=== PATIENT | male | born 1940 | race Caucasian/White ===

== ENCOUNTER → 2016-12-18 | Outpatient (CLI) | payer OTHER ==
[~2016-12-18] MED LIST: ASCO1CAP3 PO; ASPI81TA28 PO; CHOL1000 PO; FINA5TAB PO; HYT/2 PO; KRIL1CAP7 PO; METO50TA16 PO; MULT-506 PO; NIAC500T11 PO; OMEG10007 PO; PRLSR20 PO; TRAM-10 PO
[2016-12-18 12:15] LABS: HEMATOCRIT 42.9 % (42-52); MEAN CELL VOLUME 92.9 fL (80-100); MEAN CORPUSCULAR HEMOGLOBIN 31.2 pg (25-34); MEAN CORPUSCULAR HGB CONC 33.6 g/dl (32-36); MEAN PLATELET VOLUME 9.8 fL (7.4-10.4); PLATELET COUNT 147 K/uL (130-400); RED BLOOD COUNT 4.62 M/uL (4.7-6.1); WHITE BLOOD COUNT 6.55 K/uL (4.8-10.8)
[2016-12-18 12:30] LABS: ALT/SGPT 25 U/L (12-78); BLOOD UREA NITROGEN 15 mg/dl (7-18); CARBON DIOXIDE 28 mmol/L (21-32); CHLORIDE 106 mmol/L (98-107); CHOLESTEROL 85 mg/dl (0-200); CREATININE 0.96 mg/dl (0.60-1.40); GLUCOSE 103 mg/dl (70-99); POTASSIUM 4.2 mmol/L (3.5-5.1); SODIUM 142 mmol/L (136-145); TRIGLYCERIDES 85 mg/dl (0-150); VERY LOW DENSITY LIPOPROT CALC 17 mg/dl
[2016-12-18 12:33] LABS: ALB/GLOB RATIO 0.9 (0.9-2); ALKALINE PHOSPHATASE 81 U/L (45-117); AST/SGOT 17 U/L (15-37); HDL CHOLESTEROL 28 mg/dl; LDL CHOLESTEROL CALCULATED 40 mg/dl
== END | disposition home or self-care (01) ==
LOC: C.LAB1850 10:08
PROVIDERS: ATTEND Internal Medicine Cardiovascular Disease
DX: I25.10 Atherosclerotic heart disease of native coronary artery without angina pectoris (principal); I10 Essential (primary) hypertension; D69.6 Thrombocytopenia, unspecified; I07.1 Rheumatic tricuspid insufficiency; E78.5 Hyperlipidemia, unspecified

== ENCOUNTER → 2017-08-02 | Outpatient (CLI) | payer OTHER ==
--- NOTE | 2017-08-02 12:58 | DIAGNOSTIC IMAGING REPORT ---
KUB HISTORY: Follow-up study in a patient with history of kidney stones N20.0 Calculus of kidney COMPARISON: Abdominal radiograph 05/17/2015 and 03/15/2014. FINDINGS: The bowel gas pattern is non-obstructive. There is no organomegaly. Bilateral nephrolithiasis. Right renal shadow is partially secured by bowel gas. No definite ureteral calculi. No pneumoperitoneum or pneumatosis. No fracture. Levoscoliosis of the lumbar spine. Multilevel moderate to advanced degenerative changes of the spine. Degenerative changes of the bilateral hips also noted. IMPRESSION: Bilateral nephrolithiasis without definite ureteral calculi identified. Right renal shadow is partially obscured by bowel gas. Electronically signed by: Rafi Davalos M.D. 08/02/2017 12:57 PM Dictated Date/Time: 08/02/2017 12:55 PM
== END | disposition home or self-care (01) ==
LOC: C.RAD 12:23
PROVIDERS: ATTEND Urology
DX: N20.0 Calculus of kidney (principal)

== ENCOUNTER 2017-11-29 07:51 | Day surgery (SDC) | payer OTHER ==
[2017-11-15 13:13] VITALS: Ht 172.7 cm; Wt 84.1 kg
--- NOTE | 2017-11-15 13:45 | PAT Medication Instructions ---
Service Date Nov 15, 2017. Current Home Medication List Ascorbic Acid (Vitamin C), 500 MG PO NOON Aspirin (Aspirin Ec), 81 MG PO QPM Atorvastatin (Lipitor), 40 MG PO QPM Cholecalciferol (Vitamin D3), 1,000 UNIT(INT) PO QAM Finasteride (Proscar), 5 MG PO HS Gabapentin (Neurontin), 300 MG PO TID Krill Oil (Krill Oil [place]-3), 1 CAP PO QPM Lorazepam (Ativan), 0.5 MG PO BID Metoprolol Tartrate (Lopressor) (Lopressor), 50 MG PO BID Multivitamin (Multivitamin), 1 TAB PO NOON Omeprazole (Prilosec), 20 MG PO BID Sennosides-Docusate Sodium (Stool Softener), 1 TAB PO BID Tamsulosin Hcl (Flomax), 0.4 MG PO HS Tramadol (Ultram), 50 MG PO TID [Oxybutynin], 5 MG PO BID Medication Instructions For Your Scheduled Surgery - Check with surgeon and director of occupational health for instructions: Aspirin (Aspirin Ec), 81 MG PO QPM - Hold the following medications 2 weeks prior to surgery: Krill Oil (Krill Oil [place]-3), 1 CAP PO QPM - Hold the following medications the morning of surgery: Ascorbic Acid (Vitamin C), 500 MG PO NOON Cholecalciferol (Vitamin D3), 1,000 UNIT(INT) PO QAM Multivitamin (Multivitamin), 1 TAB PO NOON Sennosides-Docusate Sodium (Stool Softener), 1 TAB PO BID [Oxybutynin], 5 MG PO BID - Take the following medications the morning of surgery with a sip of water: Tramadol (Ultram), 50 MG PO TID (okay to take up to 4 hours prior to surgery if needed) Omeprazole (Prilosec), 20 MG PO BID Metoprolol Tartrate (Lopressor) (Lopressor), 50 MG PO BID Lorazepam (Ativan), 0.5 MG PO BID Gabapentin (Neurontin), 300 MG PO TID - Take the following medications as scheduled the night before surgery: [Oxybutynin], 5 MG PO BID Tramadol (Ultram), 50 MG PO TID Tamsulosin Hcl (Flomax), 0.4 MG PO HS Sennosides-Docusate Sodium (Stool Softener), 1 TAB PO BID Omeprazole (Prilosec), 20 MG PO BID Metoprolol Tartrate (Lopressor) (Lopressor), 50 MG PO BID Lorazepam (Ativan), 0.5 MG PO BID Gabapentin (Neurontin), 300 MG PO TID Finasteride (Proscar), 5 MG PO HS Atorvastatin (Lipitor), 40 MG PO QPM If you have any questions please call us at [phone] or [phone] or [phone]
--- NOTE | 2017-11-15 14:34 | DIAGNOSTIC IMAGING REPORT ---
CHEST 2 VIEWS ROUTINE HISTORY: 77 years-old Male PAT preoperative exam. No acute chest complaints. COMPARISON: Chest radiographs 05/28/2013 TECHNIQUE: PA and lateral views of the chest FINDINGS: Cardiac silhouette is upper limits of normal. Prominence of the hilar structures again seen bilaterally which appears unchanged suggesting pulmonary vascular congestion. No pneumothorax or pleural effusion. Linear subsegmental lateral left lung base opacities suggest atelectasis or scarring. Ill-defined retrocardiac left lower lobe opacities are also noted. Degenerative changes are seen within the shoulders and spine. IMPRESSION: 1. Mild pulmonary vascular congestion without overt pulmonary edema. 2. Ill-defined retrocardiac left lower lobe opacities suggest atelectasis/scarring with pneumonia thought to be less likely. The above report was generated using voice recognition software. It may contain grammatical, syntax or spelling errors. Electronically signed by: Rafi Davalos M.D. 11/15/2017 2:33 PM Dictated Date/Time: 11/15/2017 2:31 PM
[2017-11-15 15:19] LABS: HEMATOCRIT 45.6 % (42-52); HEMOGLOBIN 15.5 g/dL (14.0-18.0); MEAN CELL VOLUME 94.4 fL (80-100); MEAN CORPUSCULAR HEMOGLOBIN 32.1 pg (25-34); MEAN PLATELET VOLUME 10.4 fL (7.4-10.4); PLATELET COUNT 96 K/uL (130-400); RED CELL DISTRIBUTION WIDTH CV 14.4 % (11.5-14.5); RED CELL DISTRIBUTION WIDTH SD 49.5 fL (36.4-46.3); WHITE BLOOD COUNT 8.11 K/uL (4.8-10.8)
[2017-11-15 15:20] LABS: BASO % 0.2 %; BASO ABS # 0.02 K/uL (0-0.2); EOS % 4.4 %; EOS ABS # 0.36 K/uL (0-0.5); IG# 0.02 K/uL (0.00-0.02); LYMPH % 18.2 %; LYMPH ABS # 1.48 K/uL (1.2-3.4); MONO % 8.8 %; MONO ABS # 0.71 K/uL (0.11-0.59); NEUT % 68.2 %; NEUT ABS # 5.52 K/uL (1.4-6.5)
[2017-11-15 15:35] LABS: CALCIUM 8.4 mg/dl (8.5-10.1); CREATININE 1.06 mg/dl (0.60-1.40); POTASSIUM 4.3 mmol/L (3.5-5.1)
[~2017-11-29] VITALS: Ht 172.7 cm; Wt 84.1 kg
[~2017-11-29 07:51] MED LIST changes: +ATOR-24 PO; +GABA-113 PO; -HYT/2 PO; +LACTATED RINGER'S 1000ML 1,000 ML IV SCH; +LORA-741 PO; -NIAC500T11 PO; -OMEG10007 PO; +OXYBUTYNIN PO; +SENNTAB23 PO; +TAMS0.4C38 PO
[2017-11-29] MEDS ORDERED: PROPOFOL IV EMULSION 10 MG/ML 20 ML VIAL IV ONE (08:24)
[2017-11-29] MEDS ORDERED: PHENYLEPHRINE 100MCG/ML 5ML SYR ONE (08:24)
[2017-11-29] MEDS ORDERED: ONDANSETRON INJ 2 MG/ML 2 ML VIAL ONE (08:24)
[2017-11-29] MEDS ORDERED: EpHEDrine SULFATE 50MG/5ML SYR ONE (08:24)
[2017-11-29] MEDS ORDERED: LIDOCAINE HCL 2% 2 ML VIAL (20MG/ML) ONE (08:24)
[2017-11-29] MEDS ORDERED: FENTANYL CITRATE INJ 50 MCG/1 ML 2 ML VIAL ONE (08:25)
[2017-11-29 08:31] LABS: BASO % 0.3 %; BASO ABS # 0.03 K/uL (0-0.2); EOS % 5.1 %; EOS ABS # 0.46 K/uL (0-0.5); HEMATOCRIT 46.7 % (42-52); HEMOGLOBIN 15.9 g/dL (14.0-18.0); IG# 0.03 K/uL (0.00-0.02); LYMPH % 23.2 %; LYMPH ABS # 2.08 K/uL (1.2-3.4); MEAN CELL VOLUME 92.7 fL (80-100); MEAN CORPUSCULAR HEMOGLOBIN 31.5 pg (25-34); MEAN PLATELET VOLUME 9.3 fL (7.4-10.4); MONO % 6.3 %; MONO ABS # 0.57 K/uL (0.11-0.59); NEUT % 64.8 %; NEUT ABS # 5.81 K/uL (1.4-6.5); PLATELET COUNT 116 K/uL (130-400); RED CELL DISTRIBUTION WIDTH CV 14.3 % (11.5-14.5); RED CELL DISTRIBUTION WIDTH SD 48.3 fL (36.4-46.3); WHITE BLOOD COUNT 8.98 K/uL (4.8-10.8)
[2017-11-29] MEDS ORDERED: HYDROmorphone INJ 1 MG/ML SYR IV PRN (08:45)
[2017-11-29] MEDS ORDERED: ONDANSETRON INJ 2 MG/ML 2 ML VIAL IV PRN (08:45)
[2017-11-29] MEDS ORDERED: FENTANYL CITRATE INJ 50 MCG/1 ML 2 ML VIAL IV PRN (08:45)
[2017-11-29] MEDS ORDERED: ATROPINE SULFATE 0.1 MG/ML 5ML SYR IV PRN (08:45)
[2017-11-29] MEDS ORDERED: EpHEDrine SULFATE INJ 50 MG/ML AMP IV PRN (08:45)
--- NOTE | 2017-11-29 08:54 | History & Physical Bridge Note ---
H&P Re-Evaluation Bridge Note: I have examined the patient, reviewed the History & Physical and in the interval since the performance of the History & Physical I have noted the following changes of clinical significance: No changes noted
[2017-11-29 08:56] VITALS: BP 134/72; PULSE 61; TEMP 36.5; O2SAT 95
[2017-11-29] MEDS ORDERED: CIPROFLOXACIN 400MG / 200ML D5W ONE (09:12)
[2017-11-29] MEDS ORDERED: EpHEDrine SULFATE INJ 50 MG/ML AMP ONE (09:49)
[2017-11-29] MEDS ORDERED: DEXAMETHASONE SOD INJ 4 MG/ML VIAL ONE (09:50)
--- NOTE | 2017-11-29 10:24 | [facility] Post Operative Brief Note ---
Immediate Operative Summary Operative Date Nov 29, 2017. Pre-Operative Diagnosis Enlarged prostate with lower urinary tract symptoms Post-Operative Diagnosis same as pre-operative Procedure(s) Performed Button Transurethral Resection of the Prostate, Cystoscopy Surgeon Dr. Kim [facility] Assistant Surgeon(s) none Estimated Blood Loss 5mL Findings Consistent with Post-Op Diagnosis Specimens None, Per Surgeon Drains 20F bernstein Anesthesia Type General Complication(s) none Disposition Accompanied Pt To Recover: yes Disposition: Recovery Room / PACU
[2017-11-29] MEDS ORDERED: OXYC-57 PO (10:26)
[2017-11-29] MEDS ORDERED: NITR-5 PO (10:26)
[2017-11-29] MEDS ORDERED: PHEN-876 PO (10:26)
[2017-11-29] MEDS ORDERED: PHENAZOPYRIDINE HCL 200 MG TAB PO STA (10:28)
--- NOTE | 2017-11-29 10:28 | Discharge Instructions ---
Discharge Instructions Date of Service Nov 29, 2017. Visit Reason for Visit: Benign Prostatic Hypertrophy Discharge Discharge Diagnosis / Problem: Benign prostate enlargement Discharge Goals Goal(s): Therapeutic intervention Activity Recommendations Activity Limitations: per Instructions/Follow-up section Lifting Limitations: gradually increase as tolerated Exercise/Sports Limitations: rest today May Resume Sexual Activity: after follow-up appointment Shower/Bathe: no limitations Driving or Machine Use: resume 1 day after discharge Anesthesia . Post Anesthesia Instructions: If you have had General Anesthesia or IV Sedation: * Do not drive today. * Resume driving when surgeon permits. * Do not make important decisions or sign legal documents today. * Call surgeon for: 1. Temperature elevations greater than 101 degrees F. 2. Uncontrollable pain. 3. Excessive bleeding. 4. Persistent nausea and vomiting. 5. Medication intolerance (nausea, vomiting or rash). * For nausea and vomiting use only clear liquids such as: tea, soda, bouillon until nausea subsides, then gradually increase diet as tolerated. * If you have any concerns or questions, call your surgeon's office. If physician is unavailable and it is an emergency, call 911 or go to the nearest emergency room. . Diet Recommendations Recommended Home Diet: resume previous diet Procedures Procedures Performed: Button Transurethral Resection of the Prostate, Cystoscopy Pending Studies Studies pending at discharge: no Medical Emergencies . Who to Call and When: Medical Emergencies: If at any time you feel your situation is an emergency, please call 911 immediately. . Non-Emergent Contact Non-Emergency issues call your: Urologist Call Non-Emergent contact if: temperature is above 101.5, your pain is not controlled . . "Provider Documentation" section prepared by Eder Kim. . [place] Drug Monitoring Program Search Results: patient reviewed within database
[2017-11-29] MEDS ORDERED: OXYCODONE/ACETAMINOPHEN 5-325 TAB PO PRN (10:30)
--- NOTE | 2017-11-29 10:49 | [facility] Operative Report ---
Operative Report Operative Date Nov 29, 2017. Pre-Operative Diagnosis Enlarged prostate with lower urinary tract symptoms Post-Operative Diagnosis same as pre-operative Procedure(s) Performed Button Transurethral Resection of the Prostate, Cystoscopy Surgeon Dr. Kim Chamber Magistrate Surgeon(s) none Estimated Blood Loss 5mL Findings Cystoscopic exam revealed a normal anterior urethra prostatic fossa was obstructing with kissing lateral lobes a slightly elevated median lobe bladder showed one plus trabeculation. Both ureteral orifices were effluxing clear urine Specimens None, Per Surgeon Drains 20F bernstein Anesthesia Type General Complication(s) none Disposition yes Recovery Room / PACU Indications Patient's a 77-year-old white male who has failed maximal medical therapy for his lower urinary tract symptoms he is being brought in now for prostatic vaporization Description of Procedure After the induction of an adequate general anesthetic and appropriate timeout patient was placed in the dorsolithotomy position. Lower abdomen and genitalia were prepped with Hibiclens draped in a sterile fashion. He is a 22 Danish cystoscope routine cystoscopic exam was performed the above-noted findings. Next using a 24 Danish resection scope and button electrode the prostatic fossa was vaporized from the bladder neck to verumontanum 11:00 to 6:00 counter clockwise 1:00 to 6:00 clockwise the stricture but the bladder neck between 11 and 1 was left untouched hopefully prevent bladder neck contractions. The prostatic adenoma was vaporized until a wide open channel was created. Care was taken to avoid injury to the ureteral orifices or to the external urinary sphincter. After creating open channel any bleeding points were electrocoagulated. Patient's bladder was then filled. Resectoscope was removed and patient voided with an excellent stream on Cred maneuver. 20 Danish Bernstein cath was inserted per urethra and hooked to gravity drainage. All needle sponge counts were correct at the end of the case. Patient tolerated the procedure well and was taken to the recovery room in stable condition I attest to the content of the Intraoperative Record and any orders documented therein. Any exceptions are noted below.
--- NOTE | 2017-11-29 10:57 | Anesthesiology Progress Note ---
Anesthesia Post Op Note Date & Time Nov 29, 2017 at 10:57 Vital Signs Pain Intensity: 0 Vital Signs Past 12 Hours Date Time Temp Pulse Resp B/P (MAP) Pulse Ox O2 Delivery O2 Flow Rate FiO2 11/29/17 10:56 36.5 11/29/17 10:51 63 17 11/29/17 10:51 63 17 114/61 96 11/29/17 10:46 62 16 118/64 96 11/29/17 10:46 61 16 11/29/17 10:41 65 14 11/29/17 10:41 66 14 114/61 96 11/29/17 10:40 Room Air 11/29/17 10:36 68 17 135/57 95 11/29/17 10:36 68 17 11/29/17 10:31 57 13 109/60 96 11/29/17 10:31 57 13 11/29/17 10:26 58 12 11/29/17 10:26 58 12 105/62 96 11/29/17 10:24 105/60 11/29/17 10:21 36.4 61 16 105/60 96 Oxymask 7 11/29/17 08:56 36.5 61 20 134/72 (92) 95 Room Air Notes Mental Status: alert / awake / arousable, participated in evaluation Pt Amnestic to Procedure: Yes Nausea / Vomiting: adequately controlled Pain: adequately controlled Airway Patency, RR, SpO2: stable & adequate BP & HR: stable & adequate Hydration State: stable & adequate Anesthetic Complications: no major complications apparent
[2017-11-29 11:05] VITALS: BP 112/61; PULSE 59; TEMP 36.4; O2SAT 96
[2017-11-29 11:37] VITALS: BP 113/62; PULSE 67; O2SAT 98
[2017-11-29 12:00] VITALS: BP 116/60; PULSE 63; TEMP 36.3; O2SAT 93
[2018-11-29] MEDS ORDERED: CIPROFLOXACIN / D5W 400 MG IV SCH (06:00)
== END 2017-11-29 12:15 | disposition home or self-care (01) ==
LOC: C.ACU 07:51
PROVIDERS: ATTEND Urology
DX: N40.1 Benign prostatic hyperplasia with lower urinary tract symptoms (principal); F41.9 Anxiety disorder, unspecified; I25.10 Atherosclerotic heart disease of native coronary artery without angina pectoris; N20.0 Calculus of kidney; I10 Essential (primary) hypertension; E78.5 Hyperlipidemia, unspecified; I34.0 Nonrheumatic mitral (valve) insufficiency; I37.1 Nonrheumatic pulmonary valve insufficiency; I07.1 Rheumatic tricuspid insufficiency; E78.00 Pure hypercholesterolemia, unspecified; I25.2 Old myocardial infarction; Z79.899 Other long term (current) drug therapy; Z79.82 Long term (current) use of aspirin

== ENCOUNTER → 2017-12-23 | Outpatient (CLI) | payer OTHER ==
[~2017-12-23] MED LIST changes: -LACTATED RINGER'S 1000ML 1,000 ML IV SCH; +NITR-5 PO; +OXYC-57 PO; +PHEN-876 PO
[2017-12-23 12:13] LABS: HEMATOCRIT 44.4 % (42-52); MEAN CELL VOLUME 93.7 fL (80-100); MEAN CORPUSCULAR HEMOGLOBIN 31.6 pg (25-34); MEAN CORPUSCULAR HGB CONC 33.8 g/dl (32-36); MEAN PLATELET VOLUME 9.9 fL (7.4-10.4); PLATELET COUNT 138 K/uL (130-400); RED CELL DISTRIBUTION WIDTH CV 14.4 % (11.5-14.5)
[2017-12-23 12:28] LABS: BLOOD UREA NITROGEN 21 mg/dl (7-18); CALCIUM 8.9 mg/dl (8.5-10.1); CARBON DIOXIDE 29 mmol/L (21-32); CREATININE 1.01 mg/dl (0.60-1.40); GLUCOSE 101 mg/dl (70-99); POTASSIUM 4.8 mmol/L (3.5-5.1); SODIUM 141 mmol/L (136-145)
== END | disposition home or self-care (01) ==
LOC: C.LAB1850 10:48
PROVIDERS: ATTEND Internal Medicine Cardiovascular Disease
DX: I25.10 Atherosclerotic heart disease of native coronary artery without angina pectoris (principal); I10 Essential (primary) hypertension; E78.5 Hyperlipidemia, unspecified; I34.0 Nonrheumatic mitral (valve) insufficiency; D69.6 Thrombocytopenia, unspecified; I37.1 Nonrheumatic pulmonary valve insufficiency